=== PATIENT | female | born 1985 | race American Indian/Alaskan Native ===

== ENCOUNTER 2019-03-21 23:56 | Emergency (ER) | payer MEDICAID ==
[2019-03-22 00:07] VITALS: TEMP 98.4
[2019-03-22 00:12] VITALS: BMI 25.7
[2019-03-22 00:31] LABS: GRANULAR CAST 34 /lpf (0-1); SQUAMOUS EPITHIAL 22 /hpf (0-5); URINE BILIRUBIN 2+ (NEGATIVE); URINE BLOOD NEGATIVE (NEGATIVE); URINE CLARITY Hazy (Clear); URINE COLOR Amber (YELLOW); URINE GLUCOSE (UA) NORMAL (Normal); URINE LEUKOCYTE ESTERASE NEG Leu/uL (Negative); URINE PROTEIN 3+ mg/dL (NEGATIVE)
--- NOTE | 2019-03-22 00:45 | C.PDOC ---
History Of Present Illness Patient presents to the ER with nausea and vomiting after eating a cheese burger at [employer]. She has been unable to tolerate PO. Denies fever or chills. Time Seen by Provider: 03/22/19 00:44 Chief Complaint (Nursing): GI Problem History Per: Patient History/Exam Limitations: no limitations Onset/Duration Of Symptoms: Hrs Current Symptoms Are (Timing): Still Present Severity: Moderate Pain Scale Rating Of: 4 Location Of Pain/Discomfort: Epigastric Quality Of Discomfort: Unable To Describe Associated Symptoms: Nausea, Vomiting. denies: Fever, Chills Exacerbating Factors: None Alleviating Factors: None Recent travel outside of the [place]: No Abnormal Vaginal Bleeding: No Past Medical History Reviewed: Historical Data, Nursing Documentation, Vital Signs Vital Signs: Last Vital Signs Temp 98.4 F 03/22/19 00:07 Pulse 85 03/22/19 00:07 Resp 20 03/22/19 00:07 BP 125/80 03/22/19 00:07 Pulse Ox 98 03/22/19 00:07 - Medical History PMH: Fractures (ribs) Denies: Depression - [facility] Procedures APPLICATION OF SPLINT (12/20/04) CERVICAL LES DESTRUC NEC (04/03/00) CLOS REDUCTION NASAL FX (02/14/03) INJECT/INFUSE ELECTROLYT (03/11/14) INJECT/INFUSE NEC (03/30/14) TETANUS TOXOID ADMINIST (02/25/06) Family History: States: Unknown Family Hx - Social History Hx Tobacco Use: Yes Hx Alcohol Use: No Hx Substance Use: Yes (occasional pot) Review Of Systems Constitutional: Negative for: Fever, Chills Cardiovascular: Negative for: Chest Pain, Palpitations Respiratory: Negative for: Cough, Shortness of Breath Gastrointestinal: Positive for: Nausea, Vomiting Neurological: Negative for: Weakness, Numbness Physical Exam - Physical Exam Appears: Non-toxic Skin: Warm, Dry Head: Normacephalic Oral Mucosa: Moist Neck: Trachea Midline, Supple Chest: Symmetrical, No Tenderness Cardiovascular: Rhythm Regular Respiratory: No Rales, No Rhonchi, No Wheezing Gastrointestinal/Abdominal: Soft, Tenderness (Mild mid epigastic), No Guarding, No Rebound Neurological/Psych: Oriented x3 ED Course And Treatment - Laboratory Results Result Diagrams: 03/22/19 01:13 03/22/19 01:13 Lab Results: Urine Color Summer (YELLOW) 03/22/19 00:19 Urine Clarity Hazy (Clear) 03/22/19 00:19 Urine pH 5.0 (5.0-8.0) 03/22/19 00:19 Ur Specific [place] 1.031 (1.003-1.030) H 03/22/19 00:19 Urine Protein 3+ mg/dL (NEGATIVE) H 03/22/19 00:19 Urine Glucose (UA) Normal mg/dL (Normal) 03/22/19 00:19 Urine Ketones 2+ mg/dL (NEGATIVE) H 03/22/19 00:19 Urine Blood Negative (NEGATIVE) 03/22/19 00:19 Urine Nitrate Negative (NEGATIVE) 03/22/19 00:19 Urine Bilirubin 2+ (NEGATIVE) H 03/22/19 00:19 Urine Urobilinogen 4.0 mg/dL (0.2-1.0) H 03/22/19 00:19 Ur Leukocyte Esterase Neg Vita/uL (Negative) 03/22/19 00:19 Urine WBC (Auto) 8 /hpf (0-5) H 03/22/19 00:19 Urine RBC (Auto) 30 /hpf (0-3) H 03/22/19 00:19 Ur Squamous Epith Cells 22 /hpf (0-5) H 03/22/19 00:19 Hyaline Casts 11-20 /lpf (0-2) H 03/22/19 00:19 Granular Casts (Auto) 34 /lpf (0-1) 03/22/19 00:19 Urine HCG, Qual Negative (NEGATIVE) 03/22/19 00:19 Urine HCG, Qual Negative (NEGATIVE) 03/22/19 00:19 O2 Sat by Pulse Oximetry: 98 (Room air) Pulse Ox Interpretation: Normal Progress Note: Blood work and urinalysis ordered. Protonix, zofran, and IV fluids administered. 2:28 am tolerating po. feels better Reevaluation Time: 02:28 Reassessment Condition: Improved Medical Decision Making Medical Decision Making: Upon provider reevaluation patient is feeling better, is medically stable, and requires no further treatment in the ED at this time. Patient will be discharged home with Rx forzofran . Counseling was provided and all questions were answered regarding diagnosis and need for follow up with the referred clinic. There is agreement to discharge plan. Return if symptoms persist or worsen. Disposition Counseled Patient/Family Regarding: Studies Performed, Diagnosis, Need For Followup, Rx Given - Disposition Referrals: [facility] [Outside] Disposition: HOME/ ROUTINE Disposition Time: 00:45 Condition: FAIR Additional Instructions: Please return if symptoms recur Prescriptions: Ondansetron ODT [Zofran ODT] 1 odt PO BID PRN #6 odt PRN Reason: Nausea/Vomiting Instructions: Food Poisoning (DC) Forms: [employer] (Urdu) - Clinical Impression Clinical Impression: Food poisoning, Nausea & vomiting - Scribe Statement The provider has reviewed the documentation as recorded by the Scribe Gama Lott All medical record entries made by the Concepcionibcarlos manuel were at my direction and personally dictated by me. I have reviewed the chart and agree that the record accurately reflects my personal performance of the history, physical exam, medical decision making, and the department course for this patient. I have also personally directed, reviewed, and agree with the discharge instructions and disposition.
[2019-03-22] MEDS ORDERED: Sodium Chloride 0.9% 1,000 ML IV ONE (00:46)
[2019-03-22 01:18] LABS: BASO # 0.1 K/uL (0.0-0.2); BASO % 0.5 % (0.0-2.0); EOS # 0.1 K/uL (0.0-0.7); EOS % 0.5 % (0.0-4.0); HEMOGLOBIN 13.6 g/dL (11.0-16.0); LYMPH # 1.6 K/uL (1.0-4.3); LYMPH % 12.2 % (20.0-40.0); MEAN CELL VOLUME 82.8 fL (81.0-99.0); MEAN CORPUSCULAR HEMOGLOBIN 27.5 pg (27.0-31.0); MEAN CORPUSCULAR HGB CONC 33.3 g/dL (33.0-37.0); MEAN PLATELET VOLUME 7.6 fL (7.2-11.7); MONO # 0.9 K/uL (0.0-0.8); NEUT # 10.6 K/uL (1.8-7.0); NEUT % 79.8 % (50.0-75.0); NRBC % 0.1 % (0.0-2.0); RBC 4.93 Mil/uL (3.80-5.20); RED CELL DISTRIBUTION WIDTH 18.4 % (11.5-14.5); WHITE BLOOD COUNT 13.3 K/uL (4.8-10.8)
[2019-03-22] MEDS ORDERED: Sodium Chloride 0.9% 1,000 ML ONE (01:18)
[2019-03-22 01:29] LABS: ALB/GLOB RATIO 1.4 (1.0-2.1); ALBUMIN 4.8 g/dL (3.5-5.0); ALT/SGPT 12 U/L (9-52); AST/SGOT 19 U/L (14-36); BLOOD UREA NITROGEN 9 mg/dL (7-17); CALCIUM 9.2 mg/dl (8.6-10.4); GFR NON-AFRICAN AMERICAN > 60; LIPASE 70 U/L (23-300)
[2019-03-22 02:50] VITALS: BP 118/78; PULSE 70; RESP 14; O2SAT 99
== END 2019-03-22 02:50 | disposition home or self-care (01) ==
LOC: C.ER 23:56
DX: T62.91XA Toxic effect of unspecified noxious substance eaten as food, accidental (unintentional), initial encounter (principal); R11.2 Nausea with vomiting, unspecified
CPT/HCPCS: 80053; 81001; 82948; 83690; 84703; 85025; 96374; 96375; 99284; C9113; J2405; J7030